=== PATIENT | male | born 1985 | race African-American/Black ===

== ENCOUNTER 2020-06-28 19:52 | Emergency (ER) | payer OTHER ==
[2020-06-28] MEDS ORDERED: Ibuprofen 200 MG TAB ONE (20:01)
== END 2020-06-28 20:16 | disposition home or self-care (01) ==
LOC: NAV ERS 19:52
DX: S33.5XXA Sprain of ligaments of lumbar spine, initial encounter (principal); V49.40XA Driver injured in collision with unspecified motor vehicles in traffic accident, initial encounter
CPT/HCPCS: 99283